=== PATIENT | male | born 1965 | race Caucasian/White ===

== ENCOUNTER 2017-10-06 08:31 | Emergency (ER) | payer MEDICAID ==
[~2017-10-06] VITALS: Ht 172.7 cm; Wt 80.0 kg
[2017-10-06] MEDS ORDERED: ACETAMINOPHEN 325MG TABLET PO ONE (11:15)
[2017-10-06 13:15] VITALS: BP 144/103
== END 2017-10-06 13:20 | disposition home or self-care (01) ==
LOC: ER 08:31
DX: M25.561 Pain in right knee (principal); I10 Essential (primary) hypertension; E78.00 Pure hypercholesterolemia, unspecified; V43.52XA Car driver injured in collision with other type car in traffic accident, initial encounter; Y93.89 Activity, other specified; Y92.488 Other paved roadways as the place of occurrence of the external cause
CPT/HCPCS: 73560; 99284; Z7610

== ENCOUNTER 2019-05-08 08:45 | Emergency (ER) | payer MEDICAID ==
[~2019-05-08] VITALS: Ht 172.7 cm; Wt 80.0 kg
[2019-05-08] MEDS ORDERED: TETANUS, DIPHTHERIA, PERTUSSIS VAC/PF 0.5ML (>7YR OLD) IM ONE (10:30)
[2019-05-08 10:44] VITALS: BP 154/79
== END 2019-05-08 10:45 | disposition home or self-care (01) ==
LOC: ER 08:56
DX: L03.115 Cellulitis of right lower limb (principal); Z98.890 Other specified postprocedural states
CPT/HCPCS: 90471; 90715; 99283

== ENCOUNTER 2021-02-03 23:48 | Emergency (ER) | payer MEDICAID | END 2021-02-04 01:59 | disposition left against medical advice (07) | LOC: ER 23:48 | DX: Z53.21 Procedure and treatment not carried out due to patient leaving prior to being seen by health care provider (principal) ==

== ENCOUNTER 2021-07-08 04:26 | Emergency (ER) | payer MEDICAID | END 2021-07-08 06:23 | disposition left against medical advice (07) | LOC: ER 04:26 | DX: Z53.21 Procedure and treatment not carried out due to patient leaving prior to being seen by health care provider (principal) ==

== ENCOUNTER 2021-10-17 20:27 | Emergency (ER) | payer MEDICAID, OTHER ==
[~2021-10-17] VITALS: Ht 177.8 cm; Wt 87.0 kg
[2021-10-17 21:20] LABS: HEMATOCRIT. 50.8 % (42.0-52.0); MEAN CORPUSCULAR VOLUME 89.7 fL (80.0-94.0); MEAN PLATELET VOLUME 8.1 fl (7.4-10.4); PLATELET 290 x1000/uL (130-400); RED BLOOD CELL COUNT 5.67 mill/uL (4.7-6.1); RED CELL DISTRIBUTION WIDTH 14.2 % (11.6-14.6)
[2021-10-17 21:32] LABS: CHLORIDE 106 mEq/L (98-107)
[2021-10-17 21:35] LABS: PLATELET ESTIMATE NORMAL
[2021-10-17 21:41] LABS: BETA HYDROXYBUTYRATE 0.2 mMol/L (0.0-0.3)
[2021-10-17] MEDS ORDERED: INSULIN REGULAR (HUMULIN R) 300UNITS/3ML VIAL SUBCUT NR (22:00)
[2021-10-17 22:26] VITALS: BP 126/68
== END 2021-10-17 22:31 | disposition home or self-care (01) ==
LOC: ER 20:27
DX: E11.65 Type 2 diabetes mellitus with hyperglycemia (principal); R94.31 Abnormal electrocardiogram [ECG] [EKG]; I10 Essential (primary) hypertension; F17.210 Nicotine dependence, cigarettes, uncomplicated; Z79.4 Long term (current) use of insulin; Z02.79 Encounter for issue of other medical certificate
CPT/HCPCS: 36415; 71045; 80053; 82010; 82962; 83605; 84145; 85025; 87040; 93005; 96372; 99285; J1815